=== PATIENT | male | born 1975 | race Caucasian/White ===

== ENCOUNTER 2020-09-04 08:50 | Emergency (ER) | payer OTHER ==
[~2020-09-04] VITALS: Ht 180.3 cm; Wt 83.9 kg
[2020-09-04] MEDS ORDERED: ADDERALL 20 MG20 MG PO (09:03)
[2020-09-04] MEDS ORDERED: CELEXA 10 MG TA10 M1 PO (09:03)
[2020-09-04] MEDS ORDERED: ADDERALL 10 MG10 MG PO (09:03)
[2020-09-04 11:42] VITALS: BP 119/83
== END 2020-09-04 11:42 | disposition home or self-care (01) ==
LOC: ER 08:50
DX: S01.111A Laceration without foreign body of right eyelid and periocular area, initial encounter (principal); Z79.899 Other long term (current) drug therapy; V89.2XXA Person injured in unspecified motor-vehicle accident, traffic, initial encounter; Y93.I9 Activity, other involving external motion; Y92.488 Other paved roadways as the place of occurrence of the external cause; Y99.0 Civilian activity done for income or pay